=== PATIENT | female | born 1975 | race Asian ===

== ENCOUNTER 2019-03-09 19:52 | Emergency (ER) | payer OTHER, SELFPAY ==
[2019-03-09 20:12] VITALS: BP 118/73; PULSE 92; RESP 18; TEMP 36.7; O2SAT 100; BMI 27.2
--- NOTE | 2019-03-09 20:29 | ED_ITS ---
HPI - Arrhythmia/Palpitations <Renata Pino PA-C - Last Filed: 03/09/19 22:39> General Chief Complaint: Arrhythmia/Palpitations Stated Complaint: SOB Time Seen by Provider: 03/09/19 20:15 Source: patient Mode of arrival: ambulatory Limitations: no limitations History of Present Illness HPI narrative: This 43-year-old female comes in due to heart palpitations and discomfort. She states that this started earlier this evening after eating dinner, when she felt like maybe she ate too much. She states that she noticed a fast, but not irregular heartbeat, then she states she felt like a gas or pressure sensation in the middle of her abdomen that radiated up into the middle of her chest. She denies any upper chest or extremity discomfort. She states that she was sitting when symptoms started, and thinks that she feels a little bit lightheaded off and on when she stands up. She states this was associated with shortness of breath which she describes as harder to breathe when her heart was beating fast. She denies wheeze or dominick dyspnea. She denies nausea or vomiting. She denies pain or swelling in her extremities. she denies any history of heart disease or blood clots, however was seen here in 2017 for rapid AFib. She states she has not had recurrence and did not follow up after this. She states she does not know whether though does have menses now. She took some ibuprofen at home earlier Related Data Allergies Allergy/AdvReac Type Severity Reaction Status Date / Time No Known Drug Allergies Allergy Verified 03/09/19 20:12 Review of Systems <Renata Pino PA-C - Last Filed: 03/09/19 22:39> Review of Systems ROS Unobtainable: All systems reviewed & are unremarkable except as noted in HPI and below PFSH <Renata Pino PA-C - Last Filed: 03/09/19 22:39> Medical History (Updated 03/09/19 @ 22:33 by Renata Pino PA-C) Atrial fibrillation with rapid ventricular response (Resolved) Surgical History (Updated 03/09/19 @ 20:54 by Renata Pino PA-C) No history of previous surgery (Chronic) Family History (Updated 03/09/19 @ 20:54 by Renata Pino PA-C) Mother CAD (coronary artery disease) Social History Smoking Status: Never smoker Family History (Updated 03/09/19 @ 20:54 by Renata Pino PA-C) Mother CAD (coronary artery disease) Social History Smoking Status: Never smoker Exam <Renata Pino PA-C - Last Filed: 03/09/19 22:39> Narrative Exam Narrative: GENERAL APPEARANCE: Patient sleeping comfortably, in no distress. HEENT: PERRL, EOMI, normal oropharynx NECK/THYROID: Neck supple, no JVD, no masses. LUNGS: Clear to auscultation bilaterally. HEART: Regular rate and rhythm without murmur, normal S1, S2, no S3 or S4. ABDOMEN: Soft, NT, ND, + BS x 4 quadrants EXTREMITIES: No edema. No calf tenderness NEUROLOGIC: Alert and oriented, normal speech, and coordination. Initial Vital Signs Initial Vital Signs: Vital Signs Temperature 98.1 F 03/09/19 20:12 Pulse Rate 92 H 03/09/19 20:12 Respiratory Rate 18 03/09/19 20:12 Blood Pressure 118/73 03/09/19 20:12 Pulse Oximetry 100 03/09/19 20:12 <Manjula Abreu DO - Last Filed: 03/10/19 05:31> Initial Vital Signs Initial Vital Signs: Vital Signs Temperature 98.1 F 03/09/19 20:12 Pulse Rate 92 H 03/09/19 20:12 Respiratory Rate 18 03/09/19 20:12 Blood Pressure 118/73 03/09/19 20:12 Pulse Oximetry 100 03/09/19 20:12 Course <Renata Pino PA-C - Last Filed: 03/09/19 22:39> Additional Information: Patient is sleeping soundly during her stay, up and walking to restroom without difficulty. She has not had any irregular heartbeat on monitoring or symptomatically. She states that she did not eat or drink all day and until right before coming here. Suspect her symptoms may have been related to this. At the time of discharge normal sinus rhythm in the low to mid 80s. Advised of need to establish with PCP for follow-up as she was never seen after her episode of rapid atrial fibrillation here, she will call her OBGYN clinic which also does primary care and see whether she is able to establish there and if not advised call [facility] at the hospital here tomorrow for referral. Advised return if new or acutely worsening symptoms in the interim and she agrees Orders Ordered: ED Orders 03/09/19 20:38 Complete Blood Count AUTO DIFF Stat D Dimer Stat Magnesium Stat Thyroid Stimulating Hormone Stat Troponin & CK Cardiac Panel Stat 03/09/19 20:45 XR chest 1V Stat Discontinued Medications Aspirin (Aspirin Chew) 324 mg PO NOW ONE Stop: 03/09/19 20:45 Last Admin: 03/09/19 20:47 Dose: 324 mg Sodium Chloride (Normal Saline 0.9%) 1,000 mls @ 1,000 mls/hr IV BOLUS ONE Stop: 03/09/19 23:17 Last Infusion: 03/09/19 22:42 Dose: 0 mls/hr Admin: 03/09/19 22:00 Dose: 1,000 mls/hr Vital Signs - 8 hr 03/09/19 22:00 Pulse Rate 85 Respiratory Rate 17 Blood Pressure [Right Arm] 116/63 Pulse Oximetry 97 <Manjula Abreu DO - Last Filed: 03/10/19 05:31> Orders Ordered: ED Orders 03/09/19 20:38 Complete Blood Count AUTO DIFF Stat D Dimer Stat Magnesium Stat Thyroid Stimulating Hormone Stat Troponin & CK Cardiac Panel Stat 03/09/19 20:45 XR chest 1V Stat Discontinued Medications Aspirin (Aspirin Chew) 324 mg PO NOW ONE Stop: 03/09/19 20:45 Last Admin: 03/09/19 20:47 Dose: 324 mg Sodium Chloride (Normal Saline 0.9%) 1,000 mls @ 1,000 mls/hr IV BOLUS ONE Stop: 03/09/19 23:17 Last Infusion: 03/09/19 22:42 Dose: 0 mls/hr Admin: 03/09/19 22:00 Dose: 1,000 mls/hr Vital Signs - 8 hr 03/09/19 22:00 Pulse Rate 85 Respiratory Rate 17 Blood Pressure [Right Arm] 116/63 Pulse Oximetry 97 MDM - Arrhythmia/Palpitations <Renata Pino PA-C - Last Filed: 05/07/19 22:39> Lab Data Attestation: I reviewed the patient's lab results. Result diagrams: 03/09/19 20:38 Lab Results 03/09/19 03/09/19 03/09/19 Range/Units 20:38 20:38 20:38 WBC 8.3 (4.5-11.0) X10^3/uL RBC 4.70 (4.0-5.2) X10^6/uL Hgb 13.7 (12.0-16.0) g/dL Hct 41.0 (36-46) % MCV 87.4 (80-100) fL MCH 29.1 (26-34) PG MCHC 33.3 (30-36) % RDW 12.0 (11.6-14.8) % Plt Count 209 (150-400) X10^3/uL Neut % (Auto) 54.8 (50-75) % Lymph % (Auto) 36.7 (25-40) % [place] % (Auto) 6.1 (3-14) % Eos % (Auto) 1.9 L (2-4) % Baso % (Auto) 0.5 (0-2) % Neut # (Auto) 4500 (9512-3703) /uL Lymph # (Auto) 3000 (9150-5518) /uL [place] # (Auto) 500 (0-900) /uL Eos # (Auto) 200 (0-450) /uL Baso # (Auto) 0 (0-100) /uL D-Dimer < 200 (<230) ng/mL Magnesium 1.9 (1.6-2.3) mg/dL Total Creatine Kinase 165 H (30-135) U/L CK-MB (CK-2) 0.99 (<2.37) ng/mL CK-MB (CK-2) Rel Index 0.6 L (1.5-5.0) % Troponin I < 0.012 (0.01-0.034) ng/mL TSH (0.47-4.68) uIU/mL 03/09/19 Range/Units 20:38 WBC (4.5-11.0) X10^3/uL RBC (4.0-5.2) X10^6/uL Hgb (12.0-16.0) g/dL Hct (36-46) % MCV (80-100) fL MCH (26-34) PG MCHC (30-36) % RDW (11.6-14.8) % Plt Count (150-400) X10^3/uL Neut % (Auto) (50-75) % Lymph % (Auto) (25-40) % [place] % (Auto) (3-14) % Eos % (Auto) (2-4) % Baso % (Auto) (0-2) % Neut # (Auto) (1067-6791) /uL Lymph # (Auto) (4522-1708) /uL [place] # (Auto) (0-900) /uL Eos # (Auto) (0-450) /uL Baso # (Auto) (0-100) /uL D-Dimer (<230) ng/mL Magnesium (1.6-2.3) mg/dL Total Creatine Kinase (30-135) U/L CK-MB (CK-2) (<2.37) ng/mL CK-MB (CK-2) Rel Index (1.5-5.0) % Troponin I (0.01-0.034) ng/mL TSH 3.34 (0.47-4.68) uIU/mL Point of Care Testing Test Results Negative Urine Dip Bedside Urine Glucose Negative Bedside Urine Bilirubin - Negative Bedside Urine Ketone - Negative Urine Specific Hardy 1.020 Bedside Urine Occult Blood +++ Bedside Urine pH 6.0 Bedside Urine Protein - Negative Bedside Urine Urobilinogen - Negative Bedside Urine Nitrite - Negative Bedside Urine Leukocytes - Negative Esterase Imaging Data Chest x-ray: Radiologist's impression: [address] [address] XRay Report Signed Patient: Pooja Ruiz [facility]#: [id number] : 1975Acct:[id number] Age/Sex: 43 / FDate of Service: 03/09/19 Loc: ED Accession Number: [id number] Procedure: XR chest 1V Ordering Provider: Renata Pino P.A-C PROCEDURE: XR CHEST 1V INDICATIONS: palpitations/discomfort TECHNIQUE: One view of the chest was acquired. COMPARISON: None. FINDINGS: Surgical changes and devices: None. Lungs and pleura: Lungs are clear. No pleural effusions or pneumothorax. Mediastinum: Mediastinal contours appear normal. Heart size is normal. Bones and chest wall: No suspicious bony lesions. Overlying soft tissues appear unremarkable. IMPRESSION: No acute cardiopulmonary findings. Dictated by: Tatianna Flowers M.D. on 03/09/2019 at 21:12 Approved by: Tatianna Flowers M.D. on 03/09/2019 at 21:12 ECG Data Attestation: I personally reviewed and interpreted this ECG as follows: (Sinus tachycardia rate 100, normal axis, lead 3 complexes inverted vs previous, no ST depr.) <Manjula Abreu, - Last Filed: 03/10/19 05:31> Lab Data Lab Results 03/09/19 03/09/19 03/09/19 Range/Units 20:38 20:38 20:38 WBC 8.3 (4.5-11.0) X10^3/uL RBC 4.70 (4.0-5.2) X10^6/uL Hgb 13.7 (12.0-16.0) g/dL Hct 41.0 (36-46) % MCV 87.4 (80-100) fL MCH 29.1 (26-34) PG MCHC 33.3 (30-36) % RDW 12.0 (11.6-14.8) % Plt Count 209 (150-400) X10^3/uL Neut % (Auto) 54.8 (50-75) % Lymph % (Auto) 36.7 (25-40) % [place] % (Auto) 6.1 (3-14) % Eos % (Auto) 1.9 L (2-4) % Baso % (Auto) 0.5 (0-2) % Neut # (Auto) 4500 (2507-3646) /uL Lymph # (Auto) 3000 (7758-5626) /uL [place] # (Auto) 500 (0-900) /uL Eos # (Auto) 200 (0-450) /uL Baso # (Auto) 0 (0-100) /uL D-Dimer < 200 (<230) ng/mL Magnesium 1.9 (1.6-2.3) mg/dL Total Creatine Kinase 165 H (30-135) U/L CK-MB (CK-2) 0.99 (<2.37) ng/mL CK-MB (CK-2) Rel Index 0.6 L (1.5-5.0) % Troponin I < 0.012 (0.01-0.034) ng/mL TSH (0.47-4.68) uIU/mL 03/09/19 Range/Units 20:38 WBC (4.5-11.0) X10^3/uL RBC (4.0-5.2) X10^6/uL Hgb (12.0-16.0) g/dL Hct (36-46) % MCV (80-100) fL MCH (26-34) PG MCHC (30-36) % RDW (11.6-14.8) % Plt Count (150-400) X10^3/uL Neut % (Auto) (50-75) % Lymph % (Auto) (25-40) % [place] % (Auto) (3-14) % Eos % (Auto) (2-4) % Baso % (Auto) (0-2) % Neut # (Auto) (0811-7484) /uL Lymph # (Auto) (4390-7594) /uL [place] # (Auto) (0-900) /uL Eos # (Auto) (0-450) /uL Baso # (Auto) (0-100) /uL D-Dimer (<230) ng/mL Magnesium (1.6-2.3) mg/dL Total Creatine Kinase (30-135) U/L CK-MB (CK-2) (<2.37) ng/mL CK-MB (CK-2) Rel Index (1.5-5.0) % Troponin I (0.01-0.034) ng/mL TSH 3.34 (0.47-4.68) uIU/mL Point of Care Testing Test Results Negative Urine Dip Bedside Urine Glucose Negative Bedside Urine Bilirubin - Negative Bedside Urine Ketone - Negative Urine Specific [place] 1.020 Bedside Urine Occult Blood +++ Bedside Urine pH 6.0 Bedside Urine Protein - Negative Bedside Urine Urobilinogen - Negative Bedside Urine Nitrite - Negative Bedside Urine Leukocytes - Negative Esterase ECG Data Attestation: I personally reviewed and interpreted this ECG as follows: Prior ECG tracings: available for review Interpretation: Normal sinus rhythm rate 100 TN interval 143 QRS [address] elevations or T-wave inversions similar to previous EKG is Discharge Plan Departure Patient Disposition: Home Clinical Impression: Palpitations, Sinus tachycardia Discharge Date/Time: 03/09/19 22:57 Interventions: ED Discharge Assessment Last Done: 03/09/19 22:57 Instructions: DI for Tachycardia, DI for Palpitations Activity Restrictions/Additional Instructions: As we talked about, you should return if you have any acutely worsening symptoms again or new symptoms such as irregular heartbeat or, pain, or vomiting. your heart rate has been regular on the monitor, just a little bit fast when you got here and briefly when you get up and down. This is not an irregular heartbeat like you had when you were here in 2017. Since you are feeling okay now and have been sleeping comfortably, you can return home. Your heart rate is improved, and I suspect that since you did not eat or drink all day until right before this started and had not had any sleep, it may have been related to all of these factors. Please continue drinking plenty of clear fluids this evening and get some sleep. Make sure you eat and drink regularly throughout the day. It is important that you follow up and establish with a primary care provider in case you need any other further testing or referral to a radiation control specialist. Since you have been seen at [facility] by Dr. Malik previously, you should call their 1st thing tomorrow and see if you can be seen this week by a primary care provider. If you cannot be seen there, please call the [facility] at [phone], and asked them for help getting a follow-up appointment from your emergency room visit with a new primary care provider Referrals: [facility] [Provider Group] <Manjula Abreu DO - Last Filed: 03/10/19 05:31> [facility] ED Attending Jude Attestation: I was immediately available in the department for consultation. Documentation has been reviewed. I agree with assessment and plan.
--- NOTE | 2019-03-09 20:45 | DI.RAD.S_ITS ---
PROCEDURE: XR CHEST 1V INDICATIONS: palpitations/discomfort TECHNIQUE: One view of the chest was acquired. COMPARISON: None. FINDINGS: Surgical changes and devices: None. Lungs and pleura: Lungs are clear. No pleural effusions or pneumothorax. Mediastinum: Mediastinal contours appear normal. Heart size is normal. Bones and chest wall: No suspicious bony lesions. Overlying soft tissues appear unremarkable. IMPRESSION: No acute cardiopulmonary findings. Dictated by: Tatianna Flowers M.D. on 03/09/2019 at 21:12 Approved by: Tatianna Flowers M.D. on 03/09/2019 at 21:12
[2019-03-09] MEDS: ASPIRIN 81 MG TAB 324 MG PO (20:47)
[2019-03-09 21:06] LABS: Add Manual Diff / Slide Review NO; Basophils Absolute Auto 0 /uL (0-100); Basophils Percent Auto 0.5 % (0-2); Eosinophils Absolute Auto 200 /uL (0-450); Eosinophils Percent Auto 1.9 % (2-4); Hemoglobin 13.7 g/dL (12.0-16.0); Lymphocytes Absolute Auto 3000 /uL (1100-4500); Lymphocytes Percent Auto 36.7 % (25-40); Mean Corpuscular HGB Conc 33.3 % (30-36); Mean Corpuscular Hemoglobin 29.1 PG (26-34); Mean Corpuscular Volume 87.4 fL (80-100); Monocytes Absolute Auto 500 /uL (0-900); Monocytes Percent Auto 6.1 % (3-14); Neutrophils Absolute Auto 4500 /uL (1500-7000); Neutrophils Percent Auto 54.8 % (50-75); Platelet Count 209 X10^3/uL (150-400); White Blood Cell Count 8.3 X10^3/uL (4.5-11.0)
[2019-03-09 21:16] LABS: D Dimer < 200 ng/mL (<230)
[2019-03-09 21:17] LABS: Creatine Kinase 165 U/L (30-135); Magnesium 1.9 mg/dL (1.6-2.3)
[2019-03-09 21:30] LABS: Troponin I < 0.012 ng/mL (0.01-0.034)
[2019-03-09 21:33] LABS: CKMB % Relative Index 0.6 % (1.5-5.0); Creatine Kinase MB 0.99 ng/mL (<2.37)
[2019-03-09 22:00] VITALS: BP 116/63; PULSE 85; RESP 17; O2SAT 97
[2019-03-09] MEDS: SODIUM CHLORIDE 0.9% 1,000 ML 1000 ML IV (22:00)
[2019-03-09 22:06] LABS: Thyroid Stimulating Hormone 3.34 uIU/mL (0.47-4.68)
== END 2019-03-09 22:57 | disposition home or self-care (01) ==
PROVIDERS: Emergency Provider Internal Medicine
DX: R00.2 Palpitations (principal); R00.0 Tachycardia, unspecified; R06.02 Shortness of breath
CPT/HCPCS: 36591; 71045; 81003; 81025; 82550; 82553; 83735; 84443; 84484; 85025; 85379; 93005; 96360; 99283; 99285

== ENCOUNTER → 2021-01-29 08:12 | Outpatient (CLI) | payer OTHER, SELFPAY ==
--- NOTE | 2021-01-29 | DI.MG.S_ITS ---
BILATERAL DIGITAL SCREENING MAMMOGRAM 3D/2D WITH CAD: 01/29/2021 CLINICAL: Baseline exam. Routine screening. Family history of breast cancer. No prior exams were available for comparison. The tissue of both breasts is heterogeneously dense. This may lower the sensitivity of mammography. Current study was also evaluated with a Computer Aided Detection (CAD) system. No significant masses, calcifications, or other findings are seen in either breast. IMPRESSION: NEGATIVE There is no mammographic evidence of malignancy. A 1 year screening mammogram is recommended. This exam was interpreted at Station ID: [id number]. NOTE: For mammograms, a report in lay terms will be sent to the patient. Approximately 15% of breast malignancies will not be visualized mammographically. In the management of a palpable breast mass, a negative mammogram must not discourage biopsy of a clinically suspicious lesion. Electronically Signed By: Bret estevez/aracelis:01/29/2021 08:43:10 letter sent: Normal Exam ACR BI-RADS Category 1: Negative 3341F
== END ==
PROVIDERS: PCP Internal Medicine; Referring Provider Internal Medicine; Visit Provider Internal Medicine
DX: Z12.31 Encounter for screening mammogram for malignant neoplasm of breast (principal); Z80.3 Family history of malignant neoplasm of breast
CPT/HCPCS: 77063; 77067

== ENCOUNTER → 2022-05-14 11:25 | Outpatient (CLI) | payer OTHER, SELFPAY ==
--- NOTE | 2022-05-14 11:28 | DI.RAD.S_ITS ---
PROCEDURE: XR CLAVICLE LT INDICATIONS: ENLARGEMENT OF LEFT CLAVICAL TECHNIQUE: 2 views of the clavicle were acquired. COMPARISON: None. FINDINGS: Bones: No fractures or dislocations. No suspicious bony lesions. Soft tissues: No suspicious soft tissue calcifications. IMPRESSION: No separation of the acromioclavicular joint or bony abnormality. If further characterization is warranted, weighted views could be used. Dictated by: Tatianna Flowers M.D. on 05/14/2022 at 16:07 Approved by: Tatianna Flowers M.D. on 05/14/2022 at 16:07
== END ==
PROVIDERS: PCP Internal Medicine; Referring Provider Internal Medicine; Visit Provider Internal Medicine
DX: M89.312 Hypertrophy of bone, left shoulder (principal)
CPT/HCPCS: 73000

== ENCOUNTER → 2022-05-17 14:51 | Outpatient (CLI) | payer OTHER, SELFPAY ==
--- NOTE | 2022-05-17 | DI.MG.S_ITS ---
BILATERAL DIGITAL SCREENING MAMMOGRAM 3D/2D WITH CAD: 05/17/2022 CLINICAL: Routine screening. Family history of breast cancer. Comparison is made to exam dated: 01/29/2021 mammogram - [facility]. The tissue of both breasts is heterogeneously dense. This may lower the sensitivity of mammography. Current study was also evaluated with a Computer Aided Detection (CAD) system. No significant masses, calcifications, or other findings are seen in either breast. There has been no significant interval change. IMPRESSION: NEGATIVE There is no mammographic evidence of malignancy. A 1 year screening mammogram is recommended. This exam was interpreted at Station ID: [id number]. NOTE: For mammograms, a report in lay terms will be sent to the patient. Approximately 15% of breast malignancies will not be visualized mammographically. In the management of a palpable breast mass, a negative mammogram must not discourage biopsy of a clinically suspicious lesion. Electronically Signed By: Brian Rosario M.D., jr/aracelis:05/17/2022 16:32:29 letter sent: Normal Exam ACR BI-RADS Category 1: Negative 3341F
== END ==
PROVIDERS: PCP Internal Medicine; Referring Provider Internal Medicine; Visit Provider Internal Medicine
DX: Z12.31 Encounter for screening mammogram for malignant neoplasm of breast (principal); Z80.3 Family history of malignant neoplasm of breast
CPT/HCPCS: 77063; 77067